=== PATIENT | male | born 1930 | race Caucasian/White ===

== ENCOUNTER → 2016-10-09 | Outpatient (CLI) | payer MEDICARE ==
[~2016-10-09] MED LIST: ALPHAGAN P10 ML OP; AMLODIPINE BESYL5 MG PO; ASPIRIN PO; ATARAX PO; ATENOLOL PO; ATENOLOL25 MG PO; ATORVASTATIN CA10 MG PO; AZOPT5 ML OP; CAPOZIDE PO; COMBIGAN EYE DRO5 ML OP; COMBIGAN EYE DRO5 ML OU; COUMADIN PO; COUMADIN5 MG PO; FAMOTIDINE PO; FLEXERIL PO; HCTZ PO; HYTRIN PO; IMDUR PO; IMDUR-ER30 MG PO; INDOMETHACIN75 MG PO; ISTALOL; KEFLEX PO; LASIX PO; LASIX20 MG PO; LIPITOR PO; MEDROL PO; MICRO-K PO; MULTI-VITAMIN1 TAB PO; NEXIUM PO; NIASPAN PO; NORVASC PO; POTASSIUM600 MG PO; PRILOSEC PO; TERAZOSIN HCL10 MG PO; TRAVATAN5 ML OP; TYLOX1 CAP 5/50; VICODIN 5/500 T1 TAB PO; ZOCOR PO
--- NOTE | ~2016-10-09 | CT55 ---
[facility] A Service of [facility] & [facility] RADIOLOGY TEXT RESULTS PATIENT: BECKI MAJOR [facility] UNIT #: [id number] AGE: [address]: John Peña MD SEX: M ORDER DR: [id number] [facility] [address] [place], [place] [address] [id number] O MR#: [id number] [facility] #: [id number] NAME: BECKI MAJOR. : 1930 SEX: M STUDY DATE/TIME: 10/09/2016 11:28 UNIT: [facility] ROOM: STUDY DESCRIPTION: CT Chest W Con Attending Physician: John Peña M.D. Referring Physician: John Peña M.D. Ordering Physician: John Peañ M.D. Primary Care Physician: Patrick Graves Jr., M.D. MEDICAL IMAGING REPORT This report is preliminary unless electronic signature is present EXAM Chest CT, 10/09 INDICATION Lung cancer. Observation of malignant neoplasm. Radiation therapy December 2015. Left arm and shoulder pain for tqd-vs-xleye months. TECHNIQUE Axial images were obtained through the chest following IV contrast administration. Multiplanar reformats were obtained. This CT exam was performed with one or more of the following radiation dose reduction techniques: automatic exposure control, adjustment of mA and/or kV according to patient size, and iterative reconstruction. COMPARISON 02/14/2016 FINDINGS There is atherosclerotic disease and coronary artery disease. Again seen is emphysema. Again seen is abnormal pulmonary parenchymal density abutting the pleura in the left upper lobe. It also extends medially to abut the mediastinum. There is some air bronchograms within this density. The primary bulk of the density measures 4.9 x 4.2 cm, which is not significantly changed. A large portion of the parenchymal density is felt be related to radiation therapy. There is some associated volume loss. In the right upper lobe, there is continued parenchymal density which has elongated from anterior to posterior but contracted somewhat craniocaudally. This is also probably largely if not entirely due to fibrosis. Direct comparison is somewhat limited. Left lower lobe opacity is probably slightly improved in the interval. Consider short interval followup with repeat chest CT in the next 3 months or a followup PET/CT. Hypertrophic soft tissue changes are noted around the sternoclavicular STS. [facility] A Service of [facility] RADIOLOGY TEXT RESULTS PATIENT: BECKI MAJOR LOCATION: [facility] : 30 UNIT #: [id number] AGE: [address]: John Peña MD SEX: M ORDER DR: joints and at the first rib junctions with the sternum. This is probably related to a degenerative or inflammatory arthropathy rather than metastatic disease. These findings are stable dating back to 10/18/2015. There is no activity in these areas on the PET/CT of 11/02/2015. These changes are probably present to a mild degree on the chest CT from 2009 but have increased over that time. Upper abdomen demonstrates cholecystectomy. Hiatal hernia is unchanged. IMPRESSION Parenchymal changes in both lungs are again seen. 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 The primary area of left upper lobe consolidation is grossly stable although the degree of contraction of the lung parenchyma with volume loss is slightly increased. There is some contraction of density in the right upper chest as well. Consider short interval followup chest CT in the next 3 months versus a repeat PET/CT to exclude any residual disease. No adenopathy is seen. Dictated by... Roque Silver Jr., M.D. THIS IS AN ELECTRONICALLY VERIFIED REPORT Roque Silver Jr., M.D. at 10/11/2016 5:03 PM JERRY/prasanna TD: 10/11/2016 12:33 JOB #: [id number] MEDICAL IMAGING REPORT Page 1 of 1 COPY
[2016-10-09 11:41] LABS: POC - CREATININE 0.97 mg/dL (0.64-1.27); POC - GFR >60.0 mL/min (>60)
== END | disposition home or self-care (01) ==
LOC: CCAT 10:27
PROVIDERS: Internal Medicine Medical Oncology
DX: R91.8 Other nonspecific abnormal finding of lung field (principal); R07.82 Intercostal pain; J18.1 Lobar pneumonia, unspecified organism
CPT/HCPCS: 71260; 82565; Q9967